=== PATIENT | female | born 1995 | race Caucasian/White ===

== ENCOUNTER → 2018-07-07 10:22 | Outpatient (CLI) | payer MEDICAID, SELFPAY ==
[2018-07-07 09:53] VITALS: BMI 32.6
[2018-07-07 11:27] LABS: Absolute Lymphocyte Count 1.66 X10^3/ul (0.83-4.51); Absolute Neutrophil Count 9.5 X10^3/uL (2.0-7.7); Basophil# 0.01 X10^3/uL; Basophil% 0.1 % (0-1); Eosinophil# 0.11 X10^3/uL; Eosinophils% 0.9 % (0-5); Hematocrit 34.6 % (37-47); Hemoglobin 11.6 g/dl (12.0-15.0); Lymphocyte # 1.66 X10^3/ul (4.0); Mean Corp Hgb Conc 33.5 g/gl (32-36); Mean Corpuscular Hgb 31.7 pg (27.0-32.0); Mean Corpuscular Volume 94.5 fL (81-99); Monocyte# 0.55 X10^3/uL; Monocyte% 4.6 % (0-10); Neutrophil # 9.52 X10^3/uL (2.7-7.7); Neutrophil % 80.2 % (47-70); Platelet Count 314 K/mm3 (150-450); RBC Distribution Width CV 13.4 % (11.6-14.6); RBC Distribution Width SD 46.5 fl (35.1-43.9); Red Blood Count 3.66 M/mm3 (4.2-5.4); White Blood Count 11.9 K/mm3 (4.4-11.0)
[2018-07-07 11:29] LABS: POSITIVE COUNT NO; POSITIVE DIFFERENTIAL NO; POSITIVE MORPHOLOGY NO
[2018-07-07 11:40] LABS: Glucose Challenge Gest 1H 50g 125 mg/dL (70-140)
== END ==
PROVIDERS: Nurse Practitioner Women's Health; Visit Provider Obstetrics & Gynecology
DX: Z34.80 Encounter for supervision of other normal pregnancy, unspecified trimester (principal)
CPT/HCPCS: 36415; 82950; 85025

== ENCOUNTER → 2018-07-24 17:21 | Outpatient (CLI) | payer MEDICAID, SELFPAY ==
[2018-07-24 13:44] VITALS: BMI 32.6
== END ==
PROVIDERS: Referring Provider Obstetrics & Gynecology; Visit Provider Obstetrics & Gynecology
DX: Z34.80 Encounter for supervision of other normal pregnancy, unspecified trimester (principal)
CPT/HCPCS: 87086; 87088

== ENCOUNTER → 2018-08-07 16:59 | Outpatient (CLI) | payer MEDICAID, SELFPAY ==
[2018-08-07 10:13] VITALS: BMI 32.6
== END ==
PROVIDERS: Referring Provider Nurse Practitioner Women's Health; Visit Provider Nurse Practitioner Women's Health
DX: Z34.80 Encounter for supervision of other normal pregnancy, unspecified trimester (principal)
CPT/HCPCS: 87086; 87088

== ENCOUNTER → 2018-09-18 17:11 | Outpatient (CLI) | payer MEDICAID, SELFPAY ==
[2018-09-18 14:10] VITALS: BMI 32.6
== END ==
PROVIDERS: Referring Provider Obstetrics & Gynecology; Visit Provider Obstetrics & Gynecology
DX: Z34.90 Encounter for supervision of normal pregnancy, unspecified, unspecified trimester (principal); Z3A.36 36 weeks gestation of pregnancy
CPT/HCPCS: 87081

== ENCOUNTER 2018-10-06 00:03 | Outpatient (CLI) | payer MEDICAID, SELFPAY ==
[2018-10-02 14:10] VITALS: BMI 34.5
[2018-10-06 00:53] VITALS: BMI 34.1
--- NOTE | 2018-10-06 07:07 | OB.TRI.PN_ITS ---
Progress Notes Date of Service: 10/06/18 Progress Note: false labor no significant cervical change fht 120 moderate variability reactive no decelerations category I tracing [place]: regular but spacing out a/p false labor reactive nst dc home labor preacutions
== END 2018-10-06 03:05 | disposition home or self-care (01) ==
LOC: WPOUT 00:31 → WP 00:32
PROVIDERS: Referring Provider Obstetrics & Gynecology; Visit Provider Obstetrics & Gynecology
DX: O47.9 False labor, unspecified (principal); Z3A.00 Weeks of gestation of pregnancy not specified
CPT/HCPCS: 59025; 59050; 99218; G0378

== ENCOUNTER 2018-10-13 19:00 | Inpatient (IN) | payer MEDICAID, SELFPAY ==
[2018-10-09 14:02] VITALS: BMI 34.1
[2018-10-13] MEDS: Lactated Ringers 1,000 ML 50 ML IV ×2 (20:42→23:43)
[2018-10-13 21:01] LABS: Absolute Lymphocyte Count 1.99 X10^3/ul (0.83-4.51); Absolute Neutrophil Count 5.8 X10^3/uL (2.0-7.7); Basophil# 0.01 X10^3/uL; Basophil% 0.1 % (0-1); Eosinophil# 0.07 X10^3/uL; Eosinophils% 0.8 % (0-5); Hematocrit 36.9 % (37-47); Hemoglobin 12.6 g/dl (12.0-15.0); Lymphocyte # 1.99 X10^3/ul (4.0); Lymphocyte % 23.3 % (19-41); Mean Corp Hgb Conc 34.1 g/gl (32-36); Mean Corpuscular Hgb 31.7 pg (27.0-32.0); Mean Corpuscular Volume 92.9 fL (81-99); Mean Platelet Vol. 11.1 fl (6.2-12.0); Monocyte# 0.63 X10^3/uL; Monocyte% 7.4 % (0-10); Neutrophil # 5.82 X10^3/uL (2.7-7.7); Neutrophil % 68.3 % (47-70); POSITIVE COUNT NO; POSITIVE DIFFERENTIAL NO; POSITIVE MORPHOLOGY NO; Platelet Count 297 K/mm3 (150-450); RBC Distribution Width CV 14.3 % (11.6-14.6); RBC Distribution Width SD 47.6 fl (35.1-43.9); Red Blood Count 3.97 M/mm3 (4.2-5.4); White Blood Count 8.5 K/mm3 (4.4-11.0)
[2018-10-13 21:11] VITALS: BMI 34.3
[2018-10-13] MEDS: Oxytocin 30 units/NS 500 ml 30 UNITS/500 ML IV.SOLN IV (21:42)
[2018-10-13] MEDS: Amnioinfusion- 0.9% NS 1,000 ML IV.SOLN. 500 ML INTRA-UTER (22:25)
--- NOTE | 2018-10-13 23:10 | PCM.HP.OB ---
- Problem List (1) Status: Acute Qualifiers: Comment: Urine culture done 04/02/18. Declined genetic screening at prior OB. normal anatomy (2) Supervision of other normal Status: Acute Comment: PRR SHAQUILLE 10/10/18 girl PC: Edwin Spouse: Raphael SULLIVAN Halsey at 26 weeks; PRR-PNL done at [facility] [place], scan to [place] History Date of Admission: 10/13/18 Final SHAQUILLE: 10/10/18 Gestational age: 40 Weeks and 3 Days History of this : This is a 23 year-old, , at 40 weeks gestational age presents for induction labor secondary to postdates. Patient has had some irregular contractions but denies any vaginal bleeding or loss of fluid admits good movement.. Allergies No Known Allergies Allergy (Verified 10/13/18 20:28) Home Medications: Home Medications vitamin,calcium,jpbzajmp-mrto-qjvmc acid tablet 1 tab PO DAILY 07/07/18 Smoking Status: Never smoker Alcohol: None Number of Fetus(es): 1 Heart Tracins moderate variability reactive no decelerations category 1 tracing [place]: Irregular contractions History Past Pregnancies: Past Pregnancies Previous term vaginal delivery uncomplicated Labs: Mom's Labs & Results 10/13/18 10/13/18 20:38 20:38 WBC 8.5 RBC 3.97 L Hgb 12.6 Hct 36.9 L MCV 92.9 MCH 31.7 MCHC 34.1 RDW 14.3 RDW Differential 47.6 H Plt Count 297 MPV 11.1 Immature Gran % (Auto) 0.100 Neut % (Auto) 68.3 Lymph % (Auto) 23.3 [place] % (Auto) 7.4 Eos % (Auto) 0.8 Baso % (Auto) 0.1 Absolute Neuts (auto) 5.8 Absolute Lymphs (auto) 1.99 Total Counted Not Reportable Blood Type O POSITIVE Antibody Screen NEGATIVE Course Did the patient receive Yes care? Labs Blood Type: O RH: POSITIVE RPR/VDRL/Syphilis Nonreactive Rubella status Immune HbSAg Negative Date Done: 04/02/18 Chlamydia Negative Gonorrhea Negative HIV/AIDS Non-Reactive Group B Strep: Negative Current Obstetrical History Gestational Diabetes No Incompetent Cervix No Infertility No IUGR No Macrosomia No Hypertension/Pre-eclampsia No Placenta Previa/Abruption No PTL/PROM No Uterine anomaly No Oligohydramnios No Polyhydramnios No Multiple gestation No Past Medical History Asthma No Diabetes No Hypertension No Heart disease No Mitral valve prolapse No Neurologic/Seizure disorder/ No Migraines Kidney disease No Liver disease No Varicosities No Clotting disorders/Hx of DVT No Thyroid Dysfunction No Other medical diseases No Psychiatric disorders No Major trauma No Abnormal PAP smear No Sleep apnea No Mammogram in the last 2 years No Social History Marital Status: Alleged father Raphael Hx Smoking No Smoking Status Never smoker Expected Delivery Method: Spontaneous Vaginal Review of Systems Constitutional: Denies: Fever, Malaise Eyes: Denies: Blurred vision, Vision Change HEENT: Denies: Head Aches, Visual Changes Cardiovascular: Denies: Chest Pain, Palpitations Respiratory: Denies: Cough, Shortness of Breath, Wheezing Gastrointestinal: Denies: Abdominal Pain, Diarrhea, Nausea, Vomiting Genitourinary: Denies: Dysuria, Hematuria Musculoskeletal: Denies: Joint Pain, Muscle pain Skin: Denies: Lesions, Rash Neurological: Denies: Blurred vision, Focal weakness, Headaches Psychiatric: Denies: Anxiety, Depression Endocrine: Denies: Heat/ Cold Intolerance Hematologic/ Lymphatic: Denies: Easy Bruising, Easy Bleeding Physical Exam General: Alert, Cooperative, No apparent distress HEENT: Atraumatic, Normocephalic. Negative for: Thyromegaly, Lymphadenopathy Cardiovascular: Regular rate Lungs: Normal air movement Abdomen: Soft, Non Tender, Gravid Neurological: Deep Tendon Reflexes 2+/4 and Symmetrical, Neuro grossly intact. Negative for: Clonus MEASUREMENT AND SENSING TECHNICIAN: Normal external genitalia. Negative for: Vulvar lesions Estimated gestational size: Appropriate for gestational size Presentation: Cephalic Assessment/Plan All Active Problems (Last Reviewed 10/09/18 @ 13:53 by Erin Glover) (Acute) Supervision of other normal (Acute) This is a 23 year-old, G 2P1, at 40 weeks gestational age presents for induction of labor secondary to postdates. Patient presents IOL, plan management for , pitocin/AROM clear fluid. Pain management: minimal intervention GBS negative. Management of any complications: none I have reviewed the [facility] and made any clinically relevant updates.
[2018-10-14] MEDS: fentaNYL-bupivacaine (epidural) 100 ML BAG EPIDURAL ×2 (00:07→04:19)
[2018-10-14] MEDS: Amnioinfusion- 0.9% NS 1,000 ML IV.SOLN. 999 ML INTRA-UTER (01:32)
[2018-10-14] MEDS: Lactated Ringers 1,000 ML 50 ML IV ×2 (01:34→06:00)
[2018-10-14] MEDS: CHLORHEXIDINE GLUC 2% CLOTH 1 EACH TOWELETTE TOPICAL (02:20)
[2018-10-14] MEDS: Oxytocin 30 units/NS 500 ml 30 UNITS/500 ML IV.SOLN 334 UNITS IV (09:48)
--- NOTE | 2018-10-14 10:01 | OP.PCM_ITS ---
Problem List (1) Status: Acute Qualifiers: Comment: Urine culture done 04/02/18. Declined genetic screening at prior OB. normal anatomy (2) Supervision of other normal Status: Acute Comment: PRR SHAQUILLE 10/10/18 girl PC: Edwin Spouse: Raphael BrockBucks at 26 weeks; PRR[facility]PNL done at [facility], scan to [place] Vaginal Delivery Maternal Presentation: Elective Induction iol postdates Method of Induction: Pitocin Amniotic Membrane Rupture Type: Artificial Amniotic Fluid Description: Clear Date of Procedure: 10/14/18 Pre-Operative Diagnosis: iol maternal request Post-Operative Diagnosis: same Surgery/ Procedure Performed: Spontaneous Vaginal Delivery Type of Anesthesia: Epidural Description of Procedure: Patient began pushing and delivered the head in the NORM presentation. The head was delivered atraumatically . The anterior and posterior shoulders delivered without complication followed by the rest of the infant and the was placed on the maternal abdomen. Delayed cord clamping was employed for approximately 60 seconds. Cord was clamped and cut and gentle traction was applied to the cord and the placenta delivered spontaneously immediately following it was noted to be intact with three-vessel cord. The perineum and vagina were inspected and noted to have no laceration. EBL was 200 cc. Patient and infant tolerated delivery well. Presentation: NORM Placental Delivery Description: Spontaneous Placenta Disposition: [facility] Cord Vessel Description: 3 Vessels Estimated Blood Loss: 200 A gender: Female Episiotomy Description: None Laceration: None Medications given after delivery: IV Pitocin Complications: None
[2018-10-14] MEDS: Oxytocin 30 units/NS 500 ml 30 UNITS/500 ML IV.SOLN 167 UNITS IV (10:20)
[2018-10-14] MEDS: Methylergonovine 0.2 MG/ML Ampul IM (11:15)
[2018-10-14] MEDS: Acetaminophen 500 MG Tablet 1000 MG PO (14:11)
--- NOTE | 2018-10-14 15:09 | NURSING ---
1400 pt oob up to br to void; pt up with one assist; bed changed and pt returned to bed
[2018-10-14 16:00] VITALS: BP 105/61; PULSE 93; RESP 16; TEMP 37.1
[2018-10-14 19:15] VITALS: BP 114/86; PULSE 103; RESP 18; TEMP 36.2; O2SAT 97
[2018-10-14] MEDS: Naproxen 250 MG Tablet 500 MG PO (22:49)
[2018-10-15] VITALS: BP 102/59; PULSE 88; RESP 18; TEMP 37.2
[2018-10-15 04:00] VITALS: BP 109/59; PULSE 79; RESP 18; TEMP 36.1
--- NOTE | 2018-10-15 07:20 | DCINST_ITS ---
Discharge Diet: No Restrictions Discharge Activity: Return to Normal Activity, May not drive while taking narcotic pain medications., May Shower May resume sexual activity in: 4-6 weeks Call your doctor if your incision/area has: Continuous Slow Oozing, Sudden Increased Bleeding, Increased Pain/ Swelling, Increased Redness, Foul Smelling Discharge Additional Instructions: If you experience any of the following, contact your healthcare provider. * Bleeding that soaks a pad every hour for 2 hours * Fever 100.4 or higher * Unrelieved incision or abdominal pain * Swelling, redness, discharge or bleeding from your incision or episiotomy site * Your incision begins to separate * Problems urinating (including inability to urinate or burning while urinating). * Visual changes * Severe headache * Flu-like symptoms * Pain or redness in one of both of your breasts * Pain, warmth, tenderness or swelling in your legs, especially the calf area * Frequent nausea and vomiting * Symptoms of depression or anxiety If you experience any of the following, call 911 or go to the nearest Emergency Room. * Chest pain * Problems breathing * Seizure activity * Partial or complete paralysis of a body part, slurred speech, weakness or drooping of the face, or a sudden inability to walk or hold your balance Allergies/Adverse Reactions: Allergies No Known Allergies Allergy (Verified 10/13/18 20:28) Medications to take at Discharge vitamin,calcium,uvxgcvou-mtyp-baqbd acid tablet 1 tab PO DAILY 07/07/18 Please Follow Up With: Ama Stearns MD - [phone] When: Call to make an appointment with your doctor in 6 weeks. If you had elevated Blood pressure or 4th degree laceration you will need to be seen in 2 weeks. Primary Care Physician: Felecia Watkins,Out of [Primary Care Provider] - Test Results: Test results from this visit will be discussed in further detail at your follow- up appointment, if applicable.
--- NOTE | 2018-10-15 07:20 | PCM.PN.OB ---
Subjective: doing well no complaints pain controlled no CP SOB N V ambulating well tolerating po lochia moderate, going well - Physical Exam Vital Signs Temp Pulse Resp BP Pulse Ox 97.0 F L 79 18 109/59 L 97 10/15/18 04:00 10/15/18 04:00 10/15/18 04:00 10/15/18 04:00 10/14/18 19:15 Oxygen Delivery Method Room Air Weight: 176 lb Body Mass Index (BMI) 34.3 Intake and Output for Last 24 Hours 10/13/18 10/14/18 10/15/18 23:59 23:59 23:59 Intake Total 4645 / 4645 Output Total 350 / 350 2300 / 2300 Balance -350 / -350 2345 / 2345 Laboratory Tests Past 24 Hrs 10/14/18 10/14/18 10:07 10:12 Specimen Type CORDART CORDVEN Sample Site Cord Blood Cord Blood Cord ABG pH 7.28 Cord ABG pCO2 49.9 Cord ABG pO2 15 Cord ABG HCO3 24 Cord ABG Total CO2 25 Cord ABG Base Excess -3 Cord ABG O2 Sat 16 Cord VBG pH 7.34 Cord VBG pCO2 36.9 L Cord VBG pO2 35 Cord VBG Base Excess -6 L O2 Delivery Device Room Air Room Air Blood Gas Notified Whom RN RN Blood Gas Notified Time 1015 1010 Medical Necessity - Tobacco Use Smoking Status: Never smoker Assessment/Plan All Active Problems (Last Reviewed 10/09/18 @ 13:53 by Erin Glover) (Acute) Supervision of other normal (Acute) s/p PPD # 1 1. routine post delivery care 2. breast feeding- support given 3. rh positive 4. rubella immune
--- NOTE | 2018-10-15 07:20 | PCM.DCVAG ---
Discharge Diet: No Restrictions Discharge Activity: Return to Normal Activity, May not drive while taking narcotic pain medications., May Shower May resume sexual activity in: 4-6 weeks Call your doctor if your incision/area has: Continuous Slow Oozing, Sudden Increased Bleeding, Increased Pain/ Swelling, Increased Redness, Foul Smelling Discharge Additional Instructions: If you experience any of the following, contact your healthcare provider. Bleeding that soaks a pad every hour for 2 hours Fever 100.4 or higher Unrelieved incision or abdominal pain Swelling, redness, discharge or bleeding from your incision or episiotomy site Your incision begins to separate Problems urinating (including inability to urinate or burning while urinating). Visual changes Severe headache Flu-like symptoms Pain or redness in one of both of your breasts Pain, warmth, tenderness or swelling in your legs, especially the calf area Frequent nausea and vomiting Symptoms of depression or anxiety If you experience any of the following, call 911 or go to the nearest Emergency Room. Chest pain Problems breathing Seizure activity Partial or complete paralysis of a body part, slurred speech, weakness or drooping of the face, or a sudden inability to walk or hold your balance Allergies/Adverse Reactions: Allergies No Known Allergies Allergy (Verified 10/13/18 20:28) Medications to take at Discharge vitamin,calcium,raeuerrr-jnic-ygaqn acid tablet 1 tab PO DAILY 07/07/18 Please Follow Up With: Ama Stearns MD - [phone] When: Call to make an appointment with your doctor in 6 weeks. If you had elevated Blood pressure or 4th degree laceration you will need to be seen in 2 weeks. Primary Care Physician: Felecia Watkins,Out of [Primary Care Provider] - Test Results: Test results from this visit will be discussed in further detail at your follow-up appointment, if applicable.
[2018-10-15 08:35] VITALS: BP 104/57; PULSE 78; RESP 18; TEMP 36.4
[2018-10-15] MEDS: Naproxen 250 MG Tablet 500 MG PO (08:38)
[2018-10-15 13:00] VITALS: BP 125/70; PULSE 72; RESP 18; TEMP 36.6
--- NOTE | 2018-10-15 14:31 | NURSING ---
dc instructions given pt verbalizes understanding; maternal and infant bracelet numbers match; infant placed in car seat per parents dc to home;
--- NOTE | 2018-10-15 16:16 | NURSING ---
1435 while parents were placing infant in car seat and trying to adjust the straps it was noticed that a valentin piece to the car seat was missing and it was not safe to take infant home in that car seat; Father of baby going to the store to buy a new car seat;
--- NOTE | 2018-10-15 16:17 | NURSING ---
1600 father of baby returned with new car seat; mother and infant wheeled out to car and placed in car seat per mother. dc to home
--- NOTE | 2018-10-19 18:51 | NURSING ---
States doing well , baby nursing well and voiding and stooling. States cord came off and she put neosporin on it and a bandaid. Mother instructed to dry cord area and leave open to air and if she shes redness or drainage or baby has temp let her baby doctor know. She also states she had a headache she thought was a migraine but had only tried tylenol . Encouraged to try her motrin and if headache not better tomorrow to call Dr Stearns and get her BP checked. She states she had a good stay and she really liked her nursed Jada.
== END 2018-10-15 16:00 | disposition home or self-care (01) | DRG 560 ==
PROVIDERS: Admitting Provider Obstetrics & Gynecology; Referring Provider Obstetrics & Gynecology; Visit Provider Obstetrics & Gynecology
DX: O48.0 Post-term pregnancy (principal); Z3A.40 40 weeks gestation of pregnancy; Z37.0 Single live birth
CPT/HCPCS: 59025; 59050; 82803; 85025; 86850; 86900; 99218; J7030; J7120; G0378

== ENCOUNTER → 2019-12-27 | Outpatient (CLI) | payer MEDICAID, SELFPAY ==
[2019-12-27 10:02] VITALS: BMI 34.3
[2019-12-27 11:24] LABS: Absolute Lymphocyte Count 1.74 X10^3/uL (0.83-4.51); Absolute Neutrophil Count 7.8 X10^3/uL (2.0-7.7); Basophil# 0.02 X10^3/uL; Basophil% 0.2 % (0-1); Eosinophil# 0.08 X10^3/uL; Eosinophils% 0.8 % (0-5); Hematocrit 36.8 % (37-47); Hemoglobin 12.4 g/dL (12.0-15.0); Lymphocyte # 1.74 X10^3/ul (4.0); Lymphocyte % 17.2 % (19-41); Mean Corp Hgb Conc 33.7 g/dL (32-36); Mean Corpuscular Hgb 32.2 pg (27.0-32.0); Mean Corpuscular Volume 95.6 fL (81-99); Mean Platelet Vol. 9.8 fl (6.2-12.0); Monocyte# 0.48 X10^3/uL; Monocyte% 4.7 % (0-10); NRBC Flagged by Analyzer 0 % (0-5); Neutrophil # 7.76 X10^3/uL (2.7-7.7); Neutrophil % 76.7 % (47-70); Platelet Count 377 K/mm3 (150-450); RBC Distribution Width CV 12.5 % (11.6-14.6); RBC Distribution Width SD 43.1 fl (35.1-43.9); Red Blood Count 3.85 M/mm3 (4.2-5.4); White Blood Count 10.1 K/mm3 (4.4-11.0)
[2019-12-27 11:38] LABS: Glucose Challenge Gest 1H 50g 114 mg/dL (70-140)
[2019-12-27 11:42] LABS: Amphetamine Urine VISTA NEGATIVE (<1000 ng/mL); Barbiturate Urine VISTA NEGATIVE (< 200 ng/mL); Benzodiazepine Urine VISTA NEGATIVE (< 200 ng/mL); Cocaine Urine VISTA NEGATIVE (< 300 ng/mL); Ecstacy Urine VISTA NEGATIVE (< 500 ng/mL); Methadone Urine VISTA NEGATIVE (< 300 ng/mL); PCP Urine VISTA NEGATIVE (< 25 ng/mL); THC Urine VISTA NEGATIVE (< 50 ng/mL); Vista UDS pH Range 7
[2019-12-27 12:12] LABS: HIV - WCH Non-Reactive (Nonreactive); Hepatitis B Surface Antigen Non-Reactive (Nonreactive); Rubella IgG 40.6 IU/mL
[2019-12-27 12:26] LABS: Hepatitis C Antibody Non-Reactive (Nonreactive)
[2019-12-29 20:07] LABS: Chlamydia By Nucleic Acid AMP Negative (Negative)
[2019-12-29 20:43] LABS: Gonococcus By Nucleic Acid AMP Negative (Negative)
[2019-12-30 05:23] LABS: Rapid Plasmin Reagin (RPR) NONREACTIVE (NONREACTIVE)
== END | disposition home or self-care (01) ==
PROVIDERS: Referring Provider Obstetrics & Gynecology; Visit Provider Obstetrics & Gynecology
DX: O99.210 Obesity complicating pregnancy, unspecified trimester (principal); E66.9 Obesity, unspecified; Z3A.00 Weeks of gestation of pregnancy not specified
CPT/HCPCS: 36415; 80307; 82950; 85025; 86592; 86703; 86762; 86803; 86850; 86900; 86901; 87086; 87088; 87340; 87491; 87591

== ENCOUNTER → 2020-01-13 | Outpatient (CLI) | payer MEDICAID, SELFPAY ==
[2020-01-13 08:47] VITALS: BMI 32.3
== END | disposition home or self-care (01) ==
LOC: LABSPEC 13:43
PROVIDERS: Referring Provider Obstetrics & Gynecology; Visit Provider Obstetrics & Gynecology
DX: N39.0 Urinary tract infection, site not specified (principal)
CPT/HCPCS: 87086; 87088

== ENCOUNTER → 2020-02-11 11:20 | Outpatient (CLI) | payer MEDICAID, SELFPAY ==
[2020-01-28 11:11] VITALS: BMI 31.7
== END ==
PROVIDERS: Referring Provider Obstetrics & Gynecology; Visit Provider Obstetrics & Gynecology
DX: Z34.82 Encounter for supervision of other normal pregnancy, second trimester (principal)
CPT/HCPCS: 36415

== ENCOUNTER → 2020-04-28 14:53 | Outpatient (CLI) | payer MEDICAID, SELFPAY ==
[2020-04-10 09:57] VITALS: BMI 33.0
[2020-04-28 17:48] LABS: Glucose Challenge Gest 1H 50g 101 mg/dL (70-140)
== END ==
PROVIDERS: Obstetrics & Gynecology; Referring Provider Obstetrics & Gynecology; Visit Provider Obstetrics & Gynecology
DX: Z34.80 Encounter for supervision of other normal pregnancy, unspecified trimester (principal)
CPT/HCPCS: 36415; 82950

== ENCOUNTER → 2020-05-12 15:01 | Outpatient (CLI) | payer MEDICAID, SELFPAY ==
[2020-05-12 14:26] VITALS: BMI 33.0
[2020-05-12 15:18] LABS: Absolute Lymphocyte Count 1.74 X10^3/uL (0.83-4.51); Absolute Neutrophil Count 8.7 X10^3/uL (2.0-7.7); Basophil# 0.03 X10^3/uL; Basophil% 0.3 % (0-1); Eosinophil# 0.14 X10^3/uL; Eosinophils% 1.3 % (0-5); Hemoglobin 11.8 g/dL (12.0-15.0); Lymphocyte # 1.74 X10^3/ul (4.0); Lymphocyte % 15.6 % (19-41); Mean Corp Hgb Conc 33.7 g/dL (32-36); Mean Corpuscular Hgb 31.8 pg (27.0-32.0); Mean Corpuscular Volume 94.3 fL (81-99); Monocyte# 0.53 X10^3/uL; Monocyte% 4.8 % (0-10); NRBC Flagged by Analyzer 0 % (0-5); Neutrophil # 8.67 X10^3/uL (2.7-7.7); Neutrophil % 77.6 % (47-70); Platelet Count 280 K/mm3 (150-450); RBC Distribution Width CV 13.2 % (11.6-14.6); RBC Distribution Width SD 45.1 fl (35.1-43.9); Red Blood Count 3.71 M/mm3 (4.2-5.4); White Blood Count 11.2 K/mm3 (4.4-11.0)
[2020-05-12 23:14] LABS: Xtra Tube EP Lab EXTRA TUBE
== END ==
PROVIDERS: Obstetrics & Gynecology; Referring Provider Obstetrics & Gynecology; Visit Provider Obstetrics & Gynecology
DX: Z34.80 Encounter for supervision of other normal pregnancy, unspecified trimester (principal)
CPT/HCPCS: 36415; 85025

== ENCOUNTER → 2020-05-26 14:56 | Outpatient (CLI) | payer MEDICAID, SELFPAY ==
[2020-05-12 14:26] VITALS: BMI 33.0
--- NOTE | 2020-05-26 14:58 | US_ITS ---
STUDY: SECOND AND THIRD TRIMESTER OBSTETRICAL ULTRASOUND - LIMITED REASON FOR EXAM: Female, 24 years old. Growth. LMP: 10/29/2019. PRIOR ULTRASOUND: None. TECHNIQUE: Transabdominal TECHNICAL QUALITY: Adequate. FINDINGS: There is a single intrauterine fetus. The fetus is in a cephalic presentation. There is demonstrated cardiac activity with a heart rate of 140 bpm. There is a normal amniotic fluid volume. The largest amniotic fluid pocket measures 6.23 cm. The amniotic fluid index (LOPEZ) is 19.48 cm. The placenta is anterior in location and is not low lying. There are Grade 0 placental changes. The cervix measures 3.36 cm in length. BIOMETRY: BPD: 7.51 cm: 30 weeks, 0 days HC: 28.04 cm: 30 weeks, 5 days AC: 26.28 cm: 30 weeks, 2 days FL: 5.19 cm: 27 weeks, 4 days Age by LMP: 30 weeks, 0 days. SHAQUILLE by LMP: 08/04/2020. age by current US: 29 weeks, 5 days. SHAQUILLE by current US: 08/06/2020. Estimated weight: 1419 grams, +/- 213 grams, 45 percentile. Gender: Indeterminant US/OB Limited With Biometrics IMPRESSION: 1. Live single intrauterine at 29 weeks, 5 days. SHAQUILLE is 08/06/2020. This roughly correlates with expected gestational age by LMP. 2. EFW of 1419 g. 3. LOPEZ of 19.48 cm. 4. Anterior grade 0 placenta. 5. VERTEX presentation. Electronically Signed: Ramesh Whitaker DO at 23:46 EST Tel [phone], Service support ,
== END ==
PROVIDERS: Referring Provider Obstetrics & Gynecology; Visit Provider Obstetrics & Gynecology
DX: O99.210 Obesity complicating pregnancy, unspecified trimester (principal); Z3A.00 Weeks of gestation of pregnancy not specified
CPT/HCPCS: 76816

== ENCOUNTER → 2020-07-14 | Outpatient (CLI) | payer MEDICAID, SELFPAY ==
[2020-07-14 15:11] VITALS: BMI 34.5
== END | disposition home or self-care (01) ==
LOC: LABSPEC 16:38
PROVIDERS: Referring Provider Obstetrics & Gynecology; Visit Provider Obstetrics & Gynecology
DX: Z34.80 Encounter for supervision of other normal pregnancy, unspecified trimester (principal)
CPT/HCPCS: 87081

== ENCOUNTER → 2020-07-21 | Outpatient (CLI) | payer MEDICAID, SELFPAY ==
[2020-07-21 15:26] VITALS: BMI 33.7
[2020-07-21 16:34] LABS: ROM Internal Control Test YES-OK TO RESULT pt. (Internal QC); ROM Patient Test Negative (Negative)
== END | disposition home or self-care (01) ==
LOC: LABSPEC 16:08
PROVIDERS: Visit Provider Obstetrics & Gynecology
DX: N89.8 Other specified noninflammatory disorders of vagina (principal)
CPT/HCPCS: 84112

== ENCOUNTER 2020-07-30 04:40 | Inpatient (IN) | payer MEDICAID, SELFPAY ==
[2020-07-28 15:06] VITALS: BMI 26.4
[2020-07-30] VITALS (49 sets, daily range): BP systolic 99–128; BP diastolic 52–72; PULSE 72–98; RESP 16; TEMP 36.3–36.6; O2SAT 96–100; BMI 34.7
[2020-07-30] MEDS: Lactated Ringers 1,000 ML 50 ML IV (05:05)
[2020-07-30] MEDS: Lactated Ringers 500 ML 999 ML IV (05:10)
[2020-07-30 05:19] LABS: Absolute Lymphocyte Count 2.35 X10^3/uL (0.83-4.51); Absolute Neutrophil Count 9.5 X10^3/uL (2.0-7.7); Basophil# 0.03 X10^3/uL; Basophil% 0.2 % (0-1); Eosinophil# 0.12 X10^3/uL; Hematocrit 36.1 % (37-47); Hemoglobin 11.6 g/dL (12.0-15.0); Lymphocyte # 2.35 X10^3/ul (0.83-4.51); Lymphocyte % 18.7 % (19-41); Mean Corp Hgb Conc 32.1 g/dL (32-36); Mean Corpuscular Hgb 31.7 pg (27.0-32.0); Mean Corpuscular Volume 98.6 fL (81-99); Mean Platelet Vol. 10.7 fl (6.2-12.0); Monocyte# 0.57 X10^3/uL; Monocyte% 4.5 % (0-10); NRBC Flagged by Analyzer 0 % (0-5); Neutrophil # 9.48 X10^3/uL (2.7-7.7); Neutrophil % 75.3 % (47-70); Platelet Count 291 K/mm3 (150-450); RBC Distribution Width CV 13.3 % (11.6-14.6); RBC Distribution Width SD 48.3 fl (35.1-43.9); Red Blood Count 3.66 M/mm3 (4.2-5.4); White Blood Count 12.6 K/mm3 (4.4-11.0)
[2020-07-30] MEDS: fentaNYL-bupivacaine (epidural) 100 ML BAG EPIDURAL (06:45)
[2020-07-30] MEDS: Oxytocin 30 units/NS 500 ml 30 UNITS/500 ML IV.SOLN IV (08:06)
[2020-07-30] MEDS: Ondansetron 4 MG/2 ML Vial IV (08:36)
--- NOTE | 2020-07-30 09:16 | PCM.HPOB.BLA ---
- Problem List (1) Active labor at term Status: Acute (2) 36 weeks gestation of Status: Acute Comment: COVID test ordered 07/12/20 (sche 07/28 at 3:30pm) (3) Depression affecting Status: Acute Comment: failed zoloft and celexa and effexor. encouraged counseling. planning psychiatry consult and wants to hold off on meds until after delivery (4) History of tetanus, diphtheria, and acellular pertussis booster vaccination (Tdap) Status: Acute Comment: 06/09/20 (5) Obesity affecting Status: Acute Qualifiers: Comment: Starting BMI 34. Early 1h gtt normal. 05/26 NL growth (6) Status: Acute Qualifiers: Comment: Carrier- neg & genetic- ordered and NTD screening discussed. genetic low risk, nl anatomy (7) Supervision of other normal Status: Acute Comment: PRR SHAQUILLE: 08/04/2020 isaak Silveira PC: Hilary Pineda Spouse: Raphael History and Physical Date of Admission: 07/30/20 Intake Vital Signs 07/28/20 Height 5 ft 9 in 07/28/20 Weight: 179 lb 07/28/20 BMI 26.4 07/28/20 BP 116/70 Intake Visit Reasons: 39WK OB Chief Complaint: est ob Aerial [employer] Required: No Is patient in pain?: No Allergies No Known Allergies Allergy (Verified 07/28/20 15:06) Medications prenat.vits,charlee,kwo-dowv-uiexy 1 tab PO DAILY 07/07/18 history Confirmed 07/28/20 ondansetron 4 mg disintegrating tablet 4 mg PO Q8H PRN #30 tablet 07/20/20 Rx Confirmed 07/28/20 Last Menstral Period: 10/29/19 Zika: Zika virus screening: Negative : No PFSH PFSH Family History Father Diabetes Grandfather Diabetes Grandmother Diabetes Social History (Updated 07/28/20 @ 17:[address] Kamini Silva MD) Smoking Status: Never smoker alcohol intake: never substance use type: does not use caffeine: Yes what type of physical activity do you participate in: none seatbelt use: always do you feel safe at home: Yes additional social history: - [employer] Pregancy History 2 Elective abortions 0 Hx Para 2 Spontaneous abortions 0 Hx # Term Pregnancies 2 Ectopic pregnancies 0 Hx # Pregnancies 0 Multiple births 0 # of living children 2 Past Pregnancies Del. Date Name GA/Weeks Outcome Route Bth Weight Infant Gen Labor Lgth Anesthesia Del Locatn Provider FOB 04/27/16 Pineda 40 live - full term 7lb 5 oz Male 10/13/18 Hilary 40 live - full term 7lb 9oz Female [facility] 39WK OB : Details: KENYA SWANSON is a 25 year old at 39 weeks admitted in active labor. OB Visit SHAQUILLE Calculator Estimated Delivery Date Method Current WG Current Estimate 08/04/20 LMP (Certain) 39w 0d Other Estimates 08/03/20 Ultrasound #1 39w 1d Expected Delivery Route/Plan Labor Preferences- CB/BF classes: no labor support person: Raphael labor intervention preferences: declines hep B, interested in tub, open to standard interventions, open to other baby meds pain management options preferred: desires natural labor, but open to epidural cut cord/dad catch: no - patient wants to help catch and cut if possible : yes PP control planned: tubal ligation discussed possible routes of delivery and associated risks: discussed possible delivery modalities and possible indications for each including R/B/A of , VAVD, FAVD, and CS. questions answered. special requests: no Specific Issue/Plans flu vaccine: declined tdap vaccine: given rhogam: na LARC form signed: declined movement and labor precautions reviewed. Problem list reviewed and updated with the most current plan of care details and appropriate orders placed. Relevant counseling for the gestational age provided. Continue routine care and follow up unless otherwise noted in visit notes/problem list details Initial Weight: Not Recorded Date EGA Weight BP Urine Prot Glucose FHR FuHt Pres Dilation Effaced St Visit Note 12/27/19 8w 3d 165 lb 6 oz 130/78 171 GP - CRL GP - CRL consistent with LMP. 01/28/20 13w 0d 162 lb 6 oz 116/78 Negative Negative 150 GP - no cramping of bleeding. Declines genetic testing. 02/25/20 17w 0d 166 lb 2 oz 110/66 Negative Negative 150 GP - no ctx, LOF, VB. Has not yet felt movement. Having gender reveal tomorrow. Anatomy scheduled. 03/16/20 19w 6d 168 lb 100/62 Negative Negative 150 SM- discussed starting celexa. no SI HI no vb cramping 04/10/20 23w 3d 169 lb 102/80 Negative Negative 140 24 SM- has noticed some improved mood but not completely. no vb lof good fm n oregular ctx increased celexa to 40mg 04/28/20 26w 0d 170 lb 8 oz 110/70 Negative Negative 155 26 GP - no LOF, VB, DFM, ctx. Having intermittent visual disturbances since increasing celexa 4 weeks ago. Also feeling more tired. Mood is better. Will allow more time to see if symptoms improve, if not will consider changing medications. GP - no LOF, VB, DFM, ctx. Having intermittent visual disturbances since increasing celexa 4 weeks ago. Also feeling more tired. Mood is better. Will allow more time to see if symptoms improve, if not will consider changing medications. CBC not drawn with labs - will have drawn next visit. 05/12/20 28w 0d 169 lb 98/72 Negative Negative 150 28 SM- discussed no change in mood symptoms on higher celexa, particularly anxiety- plan switching to zololft no vb lof good fm no regualr ctx 05/26/20 30w 0d 171 lb 8 oz 102/72 Negative Negative 130 30 GP - no LOF, VB, DFM, Ctx. Denies complaints. LARC form signed. Going on vacation in June - needs copy of her records at her next visit. 06/09/20 32w 0d 173 lb 102/74 Negative Negative 135 32 Cephalic SM- no vb lof good fm no regular ctx SM- no vb lof good fm no regular ctx discussed depression symptoms are improving but still have significant anxiety. will switch to effexor 06/30/20 35w 0d 175 lb 8 oz 110/68 Negative Negative 140 35 GP - no LOF, VB, DFM, ctx. Discussed labor preferences and routes of delivery. Desires PPBTL - papers signed. 07/14/20 37w 0d 177 lb 120/82 Negative Negative 145 37 Cephalic 1 SM- no improvement and maybe worsening of mood symptoms on effexor, no SI or HI, wants to wait until after delivery to start another medication, will get in with psychiatrist, planning also counselor 07/21/20 38w 0d 173 lb 102/78 Negative Negative 140 38 Cephalic 2 50 -3 GP - No VB, DFM, regular ctx. Possible LOF since this am. Exam negative for pooling. ROM+ sent. 07/28/20 39w 0d 179 lb 116/70 Negative Negative 120 39 Cephalic 3 60 -2 GP - no LOF, VB, DFM, regular ctx. Membranes swept today. Diagnostics Diagnostics Diagnostics Glucose 1 Hr 50 gm 101 mg/dL (70-140) 04/28/20 Hgb 11.8 g/dL (12.0-15.0) L 05/12/20 Hct 35.0 % (37-47) L 05/12/20 Details: HIV: Urine Culture: Sequential Screen: NIPT Screen: ROS Const Reports system reviewed and no additional complaints, except as docu Eyes Reports system reviewed and no additional complaints, except as docu ENT Reports system reviewed and no additional complaints, except as docu Card Reports system reviewed and no additional complaints, except as docu Resp Reports system reviewed and no additional complaints, except as docu GI Reports system reviewed and no additional complaints, except as docu Reports system reviewed and no additional complaints, except as docu, Denies abnormal vaginal bleeding, Denies painful urination, Denies pelvic pain, Denies vaginal discharge, Denies vaginal odor, Denies vaginal itching Musc Reports system reviewed and no additional complaints, except as docu Skin/Breast Reports system reviewed and no additional complaints, except as docu Neuro Yes system reviewed and no additional complaints, except as docu Psych Reports system reviewed and no additional complaints, except as docu Endo Reports system reviewed and no additional complaints, except as docu Exam Const General: cooperative, healthy appearing, comfortable, no acute distress, well developed, well groomed Nutritional Appearance: average body habitus, well nourished Orientation: alert, awake, oriented x3 HENMT Head: normal to inspection, normocephalic, atraumatic Eyes Pupils: PERRL, accommodation normal Resp Effort & Inspection: normal respiratory effort, able to speak in complete sentences, symmetric chest movement Cardio Rate: regular rate GI Palpation: soft, no guarding, no masses, nontender Skin General: no rashes or lesions noted, elasticity normal, turgor normal Neuro General: alert, awake, oriented x3 Cranial Nerves: CN's II-XI intact bilaterally, sense of smell intact, PERRL, accommodation normal, EOM intact bilaterally Speech: speech normal Gait: normal gait Psych Appearance: grossly normal, well kempt Mental Status: mental status grossly normal Mood: congruent mood Affect: normal affect Speech and Movement: speech and movement normal Attitude: cooperative Thought Process: normal Thought Content: normal Judgment: judgment good Results POC Urinalysis 2 Dip (Clinic) Office Urine Glucose Negative Last Edit by Kelly Sosa on 07/28/20 15:14 Office Urine Protein Negative Last Edit by Kelly Sosa on 07/28/20 15:14 Assessment & Plan Problems 1. 36 weeks gestation of Z3A.36 COVID test ordered 07/12/20 (sche 07/28 at 3:30pm) 2. Depression affecting O99.340; F32.9 failed zoloft and celexa and effexor. encouraged counseling. planning psychiatry consult and wants to hold off on meds until after delivery 3. Obesity affecting in third trimester O99.213 Starting BMI 34. Early 1h gtt normal. 05/26 NL growth 4. Supervision of other normal Z34.80 PRR SHAQUILLE: 08/04/2020 boy Raoul PC: Hilary Pineda Spouse: Raphael 5. 39 weeks gestation of Z3A.39 Carrier- neg & genetic- ordered and NTD screening discussed. genetic low risk, nl anatomy 6. History of tetanus, diphtheria, and acellular pertussis booster vaccination (Tdap) Z92.29 06/09/20 Patient presents IAL, plan expectant management for , pitocin/AROM PRN if needed. Pain management: Plans epidural. GBS negative. Management of any complications: None I have reviewed the [facility] and made any clinically relevant updates. UPDATE- I have seen the patient and performed any clinically relevant updates to the history and physical exam. Kamini Silva MD
[2020-07-30] MEDS: Oxytocin 30 units/NS 500 ml 30 UNITS/500 ML IV.SOLN 334 UNITS IV (11:16)
--- NOTE | 2020-07-30 11:25 | PCM.OPRPT ---
Problem List (1) Active labor at term Status: Acute (2) 36 weeks gestation of Status: Acute Comment: COVID test ordered 07/12/20 (sche 07/28 at 3:30pm) (3) Depression affecting Status: Acute Comment: failed zoloft and celexa and effexor. encouraged counseling. planning psychiatry consult and wants to hold off on meds until after delivery (4) History of tetanus, diphtheria, and acellular pertussis booster vaccination (Tdap) Status: Acute Comment: 06/09/20 (5) Obesity affecting Status: Acute Qualifiers: Comment: Starting BMI 34. Early 1h gtt normal. 05/26 NL growth (6) Status: Acute Qualifiers: Comment: Carrier- neg & genetic- ordered and NTD screening discussed. genetic low risk, nl anatomy (7) Supervision of other normal Status: Acute Comment: PRR SHAQUILLE: 08/04/2020 isaak Silveira PC: Hilary Pineda Spouse: Kage Vaginal Delivery Maternal Presentation: Active Labor 25-year-old G3, P2 at 39 weeks gestation admitted in active labor. Patient made cervical change to complete dilation after being augmented with Pitocin. Amniotic Membrane Rupture Type: Spontaneous Amniotic Fluid Description: Clear Final SHAQUILLE: 08/04/20 Gestational age: 39 Weeks and 2 Days Date of Procedure: 07/30/20 Pre-Operative Diagnosis: Term , active labor Post-Operative Diagnosis: Same Surgery/ Procedure Performed: Spontaneous Vaginal Delivery Type of Anesthesia: Epidural Description of Procedure: Patient began pushing and delivered the head in the NORM presentation. The head was delivered atraumatically and no nuchal cord was noted. The anterior and posterior shoulders delivered without complication followed by the rest of the and the infant was placed on the maternal abdomen. Delayed cord clamping was employed for approximately 60 seconds. Cord was clamped and cut and gentle traction was applied to the cord and the placenta delivered spontaneously immediately following it was noted to be intact with three-vessel cord. The perineum and vagina were inspected and no laceration was noted. EBL was 100 cc. Patient and infant tolerated delivery well. Presentation: Vertex, NORM Placental Delivery Description: Spontaneous Placenta Disposition: [facility] Cord Vessel Description: 3 Vessels Cord Entanglement: None Drain: Allen to straight drain Estimated Blood Loss: 100 Infant A gender: Male Episiotomy Description: None Laceration: None Medications given after delivery: IV Pitocin Complications: None Multi Select Codes - Urinary/Genital Urinary/Genital CPT Codes: 15500 Vaginal Delivery+ Care([facility])
--- NOTE | 2020-07-30 11:28 | DCINST_ITS ---
Discharge Diet: No Restrictions Discharge Activity: Return to Normal Activity, May not drive while taking narcotic pain medications., May Shower May resume sexual activity in: 4-6 weeks Additional Activity Instructions:: Nothing in the vagina for 4-6 weeks. You may return to work/school in 6 weeks. Call your doctor if your incision/area has: Continuous Slow Oozing, Sudden Increased Bleeding, Increased Pain/ Swelling, Increased Redness, Foul Smelling Discharge Additional Instructions: If you experience any of the following, contact your healthcare provider. * Bleeding that soaks a pad every hour for 2 hours * Fever 100.4 or higher * Unrelieved incision or abdominal pain * Swelling, redness, discharge or bleeding from your incision or episiotomy site * Your incision begins to separate * Problems urinating (including inability to urinate or burning while urinating). * Visual changes * Severe headache * Flu-like symptoms * Pain or redness in one of both of your breasts * Pain, warmth, tenderness or swelling in your legs, especially the calf area * Frequent nausea and vomiting * Symptoms of depression or anxiety If you experience any of the following, call 911 or go to the nearest Emergency Room. * Chest pain * Problems breathing * Seizure activity * Partial or complete paralysis of a body part, slurred speech, weakness or drooping of the face, or a sudden inability to walk or hold your balance Allergies/Adverse Reactions: Allergies No Known Allergies Allergy (Verified 07/30/20 03:05) Medications to take at Discharge prenat.vits,charlee,jkh-anoq-dylka 1 tab PO DAILY 07/07/18 ondansetron 4 mg disintegrating tablet 4 mg PO Q8H PRN #30 tablet 07/20/20 Venlafaxine HCl [Venlafaxine HCl ER] 75 mg PO DAILY 07/30/20 When: Call to make an appointment with your doctor in 6 weeks. If you had elevated Blood Pressure or 4th degree laceration you will need to be seen in 2 weeks. Primary Care Physician: Sachin Kwon MD [Primary Care Provider] - Test Results: Test results from this visit will be discussed in further detail at your follow- up appointment, if applicable.
--- NOTE | 2020-07-30 16:41 | NURSING ---
MOB and FOB both currently CPR certified. Declined use of IPAD for review at this time. Both expressed they knew steps to perform if necessary. This RN completed CPR teaching intervention.
[2020-07-30] MEDS: Venlafaxine XR 75 MG Capsule PO (21:34)
[2020-07-30] MEDS: Naproxen 250 MG Tablet 500 MG PO (22:01)
[2020-07-31 00:11] VITALS: BP 106/53; PULSE 68; RESP 16; TEMP 36.9
[2020-07-31 04:25] VITALS: BP 117/61; PULSE 68; RESP 16; TEMP 36.6
--- NOTE | 2020-07-31 08:19 | PCM.PN.OB ---
Patient Problems: Active and Suspected Problems (Last Reviewed 07/28/20 @ 15:06 by Kelly Sosa) Active labor at term (Acute) 36 weeks gestation of (Acute) COVID test ordered 07/12/20 (sche 07/28 at 3:30pm) History of tetanus, diphtheria, and acellular pertussis booster vaccination (Tdap) (Acute) 06/09/20 Depression affecting (Acute) failed zoloft and celexa and effexor. encouraged counseling. planning psychiatry consult and wants to hold off on meds until after delivery Obesity affecting (Acute) Starting BMI 34. Early 1h gtt normal. 05/26 NL growth Supervision of other normal (Acute) PRR SHAQUILLE: 08/04/2020 boy Raoul PC: PinedaDora phillipsna Spouse: Raphael (Acute) Carrier- neg & genetic- ordered and NTD screening discussed. genetic low risk, nl anatomy Subjective: Patient doing well without complaints. Tolerating PO. Ambulating and voiding without difficulty. Breast feeding well. Denies chest pain, shortness of breath, calf pain/swelling, fevers, chills, lightheadedness. - Physical Exam Vitals/I&O's: Vital Signs Temp Pulse Resp BP Pulse Ox 97.9 F 68 16 117/61 97 07/31/20 04:25 07/31/20 04:25 07/31/20 04:25 07/31/20 04:25 07/30/20 07:14 Oxygen Delivery Method Room Air Weight: 177 lb 9.6 oz Body Mass Index (BMI) 34.7 Intake and Output for Last 24 Hours 07/29/20 07/30/20 07/31/20 23:59 23:59 23:59 Intake Total 1877.79 / 1877.79 Output Total 1800 / 1800 Balance 77.79 / 77.79 General: Alert, Oriented x3, Cooperative, No apparent distress, Well developed, Well nourished HEENT: Atraumatic, PERRLA, EOMI, Normocephalic Neck: Supple, No JVD Lungs: Normal air movement Cardiovascular: Regular rate Abdomen: Soft, Non Tender, Non-Distended, - - fundus firm Extremities: No edema, No Calf Tenderness Neurological: Cranial nerves II-XII grossly intact, Neuro grossly intact Psych/Mental Status: Normal Affect, Appropriate Microbiology Past 72 Hours 07/30/20 05:05 Mucosa - Nose SARS-CoV-2 Antigen (Rapid) - Final Current Medications Acetaminophen (Acetaminophen 500 Mg Tablet) 1,000 mg PO Q8H PRN PRN PRN Reason: Pain Score 1-3 Bisacodyl (Bisacodyl 10 Mg Suppository) 10 mg RC UD PRN PRN Reason: If no BM Dibucaine (Dibucaine 30 Gm Tube) 1 applic TOPICAL TID PRN PRN; Protocol PRN Reason: Discomfort Hydrocortisone (Hydrocortisone 2.5% Crm) 1 applic TOPICAL TID PRN PRN; Protocol PRN Reason: Discomfort Methylergonovine Maleate (Methylergonovine 0.2 Mg/Ml Ampul) 0.2 mg IM X1 PRN PRN Reason: Excess bleeding/uterine atony Naproxen (Naproxen 250 Mg Tablet) 500 mg PO Q8H PRN PRN PRN Reason: Pain Score 1-3 Last Admin: 07/30/20 22:01 Dose: 500 mg Documented by: Ondansetron HCl (Ondansetron 4 Mg/2 Ml Vial) 4 mg IV Q4H PRN PRN PRN Reason: Nausea Senna/Docusate Sodium (Senna/Docusate Sodium 1 Tablet) 1 - 2 tablet PO DAILY PRN PRN PRN Reason: Constipation Simethicone (Simethicone 80 Mg Tablet) 80 mg PO PCHS PRN PRN Reason: Indigestion/Stomach pain Sodium Chloride (0.9% Saline Lock 10 Ml Syringe) 5 - 15 ml IV UD PRN PRN Reason: SALINE FLUSH Venlafaxine HCl (Venlafaxine Xr 75 Mg Capsule) 75 mg PO DAILY@2200 OTILIO Last Admin: 07/30/20 21:34 Dose: 75 mg Documented by: Medical Necessity - Tobacco Use Smoking Status: Never smoker Assessment/Plan All Active Problems (Last Reviewed 07/28/20 @ 15:06 by Kelly Sosa) Active labor at term (Acute) 36 weeks gestation of (Acute) History of tetanus, diphtheria, and acellular pertussis booster vaccination (Tdap) (Acute) Depression affecting (Acute) Obesity affecting (Acute) Supervision of other normal (Acute) (Acute) (Resolved) Supervision of other normal (Resolved) Thyromegaly (Resolved) s/p PPD # 1 1. routine post delivery care 2. breast feeding- support given 3. rh positive 4. rubella immune 5. Plan PPBTL for control
[2020-07-31 08:21] VITALS: BP 119/75; PULSE 67; RESP 16; TEMP 36.1
--- NOTE | 2020-07-31 11:14 | NURSING ---
Dr. Silva's office called and unable to do tubal today. Pt requesting to be discharged today
[2020-07-31 12:00] VITALS: BP 108/57; PULSE 80; RESP 16; TEMP 36.1
--- NOTE | 2020-07-31 12:50 | CASEMGMT ---
Social Work Assessment Labor and Delivery Unit Date of Referral: 07/30/20 Time of Referral: 15:36 Referred By: Dr. Silva Date of Intervention: 07/31/20 Time of Intervention: 12:50 Reason for Referral: History of anxiety and depression, post- depression- currently prescribed Effexor History obtained from: Medical record and mother of baby (MOB) Household composition: MOB, /father of baby(FOB), 4 year-old son, Edwin, 1 year-old daughter, Kristine and now baby boy, Matheus Patient's parent/guardian status: MOB and FOB have been together for 8 years, for 5 years Educational Status: High school graduate, MOB denies any issues with reading, writing, and comprehending what is read. Financial Status: 1 income household Infant Supplies: MOB reports to have all needs met for baby including, diapers, wipes, clothes, car seat, bottles, crib, etc. Childcare/Caregiver(s): MOB reports she and FOB will be main caregivers, MOB is a stay at home mother Transportation: No issues reported Programs/Agencies Involved: [facility] Children Services/Legal Issues: MOB reports no issues with children services as a child or for her children. MOB and FOB deny any legal issues. Behavioral Health Issues: Mental Health History: MOB reports history of anxiety, depression and post- depression. MOB reports believes PPD started with first child and carried over into her second . MOB believes mental health stems from childhood traumas. MOB reports is treated with medication. MOB reports to be feeling good. MOB denies any suicidal or homicidal ideation. FOB denies any history of mental health for self. Substance Use History: MOB denies and history of substance abuse. FOB reports use as a teenager, experimenting. Family History: MOB reports her mother is an addict and grandfather was a violent alcoholic. MOB reports has been setting boundaries with her mother. Family/Social Stressors: MOB reports plan for tubal and it can't be done today. MOB reports wanting to discharge today if unable to have procedure done. MOB states due to insurance issues and hoping it will be covered before she is cut from Medicaid. MOB states will be following up with [facility]. Support Systems: MOB reports good support from FOB's family and her extended family. Depression and Anxiety/Shaken Baby/Safe Sleeping: Reviewed and resources provided. ASSESSMENT: Met with MOB in room. Baby out of room at this time for testing. Introduced role and reason for referral. MOB openly discussed history of mental health and treatment with medication. MOB reports to have good support from FOB. MOB denies any issues or concerns with home going and reports due to not having tubal procedure done, hopeful for discharge today. Nursing updated on this worker's assessment. No other services requested or indicated. PLAN: Home with resources provided Prabha Sinha MSW, [employer]
--- NOTE | 2020-07-31 16:42 | NURSING ---
1200- epidural catheter removed with blue tip intact. tolerated well
== END 2020-07-31 14:45 | disposition home or self-care (01) | DRG 560 ==
LOC: WPOUT 04:44 → WP 04:44
PROVIDERS: Admitting Provider Obstetrics & Gynecology; Visit Provider Obstetrics & Gynecology
DX: O99.214 Obesity complicating childbirth (principal); Z3A.39 39 weeks gestation of pregnancy; Z37.0 Single live birth
CPT/HCPCS: 59025; 59050; 85025; 86850; 86900; 86901; 87426; 99218; J7120; G0378; J2405

== ENCOUNTER → 2020-09-13 | Outpatient (CLI) | payer MEDICAID, SELFPAY ==
[2020-09-13 13:58] VITALS: BMI 34.7
[2020-09-18 13:54] LABS: HPV Reflexed? NOT INDICATED
== END | disposition home or self-care (01) ==
LOC: LABSPEC 15:52
PROVIDERS: Visit Provider Obstetrics & Gynecology
DX: Z12.4 Encounter for screening for malignant neoplasm of cervix (principal)
CPT/HCPCS: 88175; G0145

== ENCOUNTER 2020-09-26 06:00 | Day surgery (SDC) | payer MEDICAID, SELFPAY ==
[2020-07-30 03:04] VITALS: BMI 34.7
[2020-09-13 13:58] VITALS: BMI 34.7
[2020-09-25 14:45] LABS: Hematocrit 37.4 % (37-47); Hemoglobin 12.6 g/dL (12.0-15.0); Mean Corp Hgb Conc 33.7 g/dL (32-36); Mean Corpuscular Hgb 31.4 pg (27.0-32.0); Mean Corpuscular Volume 93.3 fL (81-99); Mean Platelet Vol. 10.3 fl (6.2-12.0); Platelet Count 381 K/mm3 (150-450); RBC Distribution Width CV 13.2 % (11.6-14.6); RBC Distribution Width SD 44.7 fl (35.1-43.9); Red Blood Count 4.01 M/mm3 (4.2-5.4); White Blood Count 7.6 K/mm3 (4.4-11.0)
[2020-09-26 06:49] LABS: Internal QC Validated? YES +Cl - CLEAR BKGD; Pregnancy, Urine Negative Negative
[2020-09-26 06:57] VITALS: BP 122/79; PULSE 63; RESP 16; TEMP 36.4; O2SAT 98; BMI 32.1
[2020-09-26] MEDS: Lactated Ringers 1,000 ML 100 ML IV (07:13)
--- NOTE | 2020-09-26 07:13 | PCM.HP.OB ---
HPI - General HPI Narrative KENYA SWANSON, is a 25 F who presents for tubal ligation. [facility] Medical History (Updated 09/20/20 @ 08:47 by Ting Capellan) Alcohol use Anemia Anxiety Depression Marijuana use Migraine headache Non-smoker Wears glasses Home Medications prenat.vits,charlee,mlt-[id number] 1 tab PO DAILY 07/07/18 [History Last Taken 07/29/20] venlafaxine 75 mg PO DAILY 07/30/20 [History Last Taken 07/29/20] Allergy/AdvReac Type Severity Reaction Status Date / Time No Known Allergies Allergy Verified 09/26/20 06:52 Family History Father Diabetes Grandfather Diabetes Grandmother Diabetes Social History Smoking Status: Never smoker alcohol intake: never substance use type: does not use caffeine: Yes what type of physical activity do you participate in: none seatbelt use: always do you feel safe at home: Yes additional social history: - [employer] History 3 Elective abortions 0 Hx Para 3 Spontaneous abortions 0 Hx # Term Pregnancies 3 Ectopic pregnancies 0 Hx # Pregnancies 0 Multiple births 0 # of living children 3 Past Pregnancies Del. Date Name GA/Weeks Outcome Route Bth Weight Gen Labor Lgth Anesthesia Del Locatn Provider FOB 04/27/16 Pineda 40 live - full term 7lb 5 oz Male 10/13/18 Hilary 40 live - full term 7lb 9oz Female [facility] Daryn 07/30/20 Matheus 39 live - full term 7lbs 7oz Male [facility] Ricardo Delivery Date: 04/27/16 No notes to display Delivery Date: 10/13/18 No notes to display Delivery Date: 07/30/20 admitted in active labor, uncomplicated vaginal delivery Marley Baez ROS Eyes Eyes: Reports systems reviewed and no addt'l complaints, except as documented ENT HEENT: Reports systems reviewed and no addt'l complaints, except as documented Cardiovascular Cardiovascular: Reports systems reviewed and no addt'l complaints, except as documented Respiratory/Chest Respiratory/Chest: Reports systems reviewed and no addt'l complaints, except as documented Gastrointestinal Gastrointestinal: Reports systems reviewed and no addt'l complaints, except as documented Genitourinary Genitourinary: Reports systems reviewed and no addt'l complaints, except as documented Musculoskeletal Musculoskeletal: Reports systems reviewed and no addt'l complaints, except as documented Integumentary Integumentary: Reports systems reviewed and no addt'l complaints, except as documented Neurologic Neurologic: Reports systems reviewed and no addt'l complaints, except as documented Psychiatric Psychiatric: Reports systems reviewed and no addt'l complaints, except as documented Endocrine Endocrinology: Reports systems reviewed and no addt'l complaints, except as documented Hematologic/Lymphatic Hematologic/Lymphatic: Reports systems reviewed and no addt'l complaints, except as documented Allergic/Immunologic Allergic/Immunologic: Reports systems reviewed and no addt'l complaints, except as documented Vital Signs Vital Signs Vital Signs: 09/26/20 06:57 Temperature 97.6 F L Temperature Source Temporal Pulse Rate 63 Respiratory Rate 16 Respiratory Pattern Normal Blood Pressure 122/79 H Blood Pressure Mean 93 Blood Pressure Source Monitor Blood Pressure Position Semi-Fowlers Blood Pressure Location Left Arm Pulse Ox 98 Oxygen Delivery Method Room Air Weight Weight: 164 lb 10.965 oz Body Mass Index (BMI) 32.1 Physical Exam Const alert, oriented x3, no apparent distress, average body habitus, healthy appearing and well nourished HEENT normocephalic and moist oral mucous membranes Head and Scalp: atraumatic Eyes PERRL and EOMs intact bilaterally Neck full ROM Resp normal respiratory effort, no retractions and no use of accessory muscles Cardio regular rate and regular rhythm GI soft to palpation, non-tender and non-distended Extremity normal to inspection and full ROM Skin no rashes or lesions noted Neuro no focal motor deficits and no sensory deficits noted Psych mental status grossly normal, affect normal, speech normal and activity/motor behavior normal Labs Labs Labs: Blood Type O POSITIVE Antibody Screen NEGATIVE Hct 37.4 % (37-47) Hgb 12.6 g/dL (12.0-15.0) Pap Smear Negative Obstetrics US Rubella IgG Antibody 40.6 IU/mL Hep Bs Antigen Non-Reactive (Nonreactive) Neisseria gonorrhoeae DNA ([place]) Negative (Negative) HIV 1&2 Antibody Non-Reactive (Nonreactive) Glucose 1 Hr 50 gm 101 mg/dL (70-140) Rhogam given: No Miscellaneous Test Assessment & Plan (1) Tubal ligation evaluation: PLAN: Plan for tubal ligation. Reports is certain that she does not want to get again in the future The nature of the procedure was discussed with the patient. Risks, benefits, indications, and alternatives to the procedure were discussed with the patient including bleeding, infection, and visceral or vascular injury. Agreeable to blood products if medically necessary. Discussed possibility of infection inside abdomen or at incision sites which could require outpatient or inpatient antibiotics. Discussed the possibility of injury to uterus, tubes, ovaries, bowel, and bladder. Aware that this could require intra-op consult to general surgery or urology. Also aware of the possibility of prolonged hospitalization or reoperation. Discussed possibility of need to convert to open to procedure. All questions were answered. Patient voices understanding and agrees to proceed. Plan laparoscopic bilateral salpingectomy
--- NOTE | 2020-09-26 07:21 | PCM.DC ---
Discharge Instructions Diet Discharge Diet: No restrictions Activity Discharge Activity: May Not Drive (While on narcotic pain medication) and May Shower May resume sexual activity in: 1-2 weeks Lifting Restrictions: No lifting greater than 20 pounds until postop visit Dressing / Incision Call your doctor if your incision/area has: Continuous Slow Oozing, Sudden Increased Bleeding, Increased Pain/ Swelling, Increased Redness, Foul Smelling Discharge and Swelling at the incision site Call your doctor if you observe: Fever of 101 or Higher, Inability to urinate, Using more than 1 pad per hour, Shortness of breath, Dizziness, Fainting spells, Chest pain and Uncontrolled pain Remove Dressing in: 1 week Cleanse incision/area with: Soap & Water Follow Up Care Please Follow Up With: Kamini Silva MD When: 2 weeks Test Results: Test results from this visit will be discussed in further detail at your follow-up appointment, if applicable. Discharge Plan Admission Primary Reason for Your Visit: Tubal ligation Attending Provider: Kamini Silva Primary Care Provider: Sachin Kwon Instructions Patient Instructions: After Laparoscopic Fallopian Tube Ligation Discharge Orders/Prescriptions Prescriptions: New ibuprofen [ibuprofen] 600 MG tablet 600 mg PO Q6H PRN PRN (Reason: pain) Qty: 30 RF: 1 oxycodone 5 mg capsule 5 mg PO Q6H PRN (Reason: pain) 5 Days Qty: 8 RF: 0 Continued prenat.vits,charlee,fsk-xiqt-xhyaf tablet 1 tab PO DAILY RF: 0 venlafaxine 75 MG tablet extended release 24hr 75 mg PO DAILY RF: 0 Referrals / Follow Up: Sachin Kwon MD [Primary Care Provider] - Disposition Disposition (needs filled in before D/C Order can be placed): Home, Self Care
--- NOTE | 2020-09-26 07:24 | PCM.OPRPT ---
Problems Associated Problem List Diagnoses (1) Encounter for tubal ligation: Report of Operation Date of Procedure: 09/26/20 Pre-Operative Diagnosis: Desire for permanent stimulation Post-Operative Diagnosis: Same Surgery/Procedure Performed:: Laparoscopic bilateral salpingectomy Description of Surgical Findings:: Normal uterus, tubes, ovaries bilaterally residential property consultant: Ketty Rush Type of Anesthesia: General Special Medications: 0.25% Marcaine Specimen's removed: Bilateral tubal segments Drains: Straight cath Estimated Blood Loss (mL): 10 Description of Procedure: The patient was taken to the operating room where general anesthesia was obtained without difficulty. She was prepped and draped in the dorsal lithotomy position with yellofin stirrups. A weighted speculum was placed in the posterior aspect of the vagina and the anterior lip of the cervix was grasped with a single-tooth tenaculum. The uterus was sounded and found to be 8 cm. A Zumi uterine manipulator was placed without difficulty and all other instruments were removed from the vagina. Gloves were changed and attention was directed to the abdomen. The umbilicus was grasped with towel clamps. 10cc of 0.25% marcaine was used to anesthetize the umbilicus. A 5mm incision was made at the base of the umbilicus. A veress needle was inserted without difficulty and intra-abdominal placement was confirmed using the water-drop test. The abdomen was insufflated to 15 mmHg and the veress needle was removed. A 5mm optiview trochar was then placed under direct visualization. Initial survey of the abdominal cavity revealed no evidence of trauma. The above findings were noted. An additional 5mm port was placed in the left lower quadrant. The ligasure device was used to grasp, cauterize, and transect the mesosalpinx bilaterally and the tubes were amputated and removed from the 5mm port. The area was reinspected and good hemostasis was noted. The procedure was deemed complete. All instruments were removed from the abdominal cavity. The port sites were closed in a simple interrupted fashion using 3-0 monocryl and sterile dressings were placed. The uterine manipulator was removed. The patient was awakened from anesthesia and taken to the recovery room in stable condition. Complications None apparent Admit VTE Documentation VTE Present on Admission: No VTE Mechan Device Prophylaxis: SCD's VTE Pharm Prophylaxis ordered?: No Procedures Urinary/Genital [id number]: [id number] Laproscopic BS/O (BS)
--- NOTE | 2020-09-26 07:30 | FALS_PTH ---
PATIENT: KENYA SWANSON [place] [facility] [place][id number] AGE/SX: 25/F ROOM: RE09/26/[address]: Dr. Kamini Silva MD : 1995 BED: DIS: 09/26/2020 SPEC #: [id number] RECD: 09/26/20 11:02 STATUS: ZAK ROSARIO #: [id number] MADHAVI: 09/26/20 07:[address]: Kamini Silva DEPT: SURGICAL PATHOLOGY RECD BY: Shea De Paz ENTERED: 09/26/20 11:36 SP TYPE: FALL TUBES OTHR DR: Dr. Sachin Kwon MD Tissues: Fallopian tube Procedures: Surgery Specimen Level II HEADER OPERATION: Laparoscopic salpingectomy with Ligasure PRE-OP DIAGNOSIS: Tubal ligation TISSUE SUBMITTED: Bilateral fallopian tubes MICROSCOPIC DIAGNOSIS Right and left fallopian tubes, bilateral salpingectomies: Two complete segments of fallopian tubes with no pathologic change. AM:ishaan 09/27/2020 MICROSCOPIC DESCRIPTION Slides are reviewed. GROSS DESCRIPTION Received in fixative is one container labeled with the patient's name and designated bilateral fallopian tubes. The specimen consists of bilateral fallopian tubes including fimbrial ends measuring 6.5 cm in length and up to 0.5 cm in diameter and 5 cm in length and 0.5 cm in diameter. The fallopian tubes are not identified as right or left. Sections reveal unremarkable cut surfaces. Catalogue Illustrator sections are submitted in two cassettes with each cassette containing one fallopian tube. / RON:ishaan 09/26/20 TC:4 CPT: 92562 x2
[2020-09-26] MEDS: Bupivacaine Mpf 0.5% 30 ML VIAL (07:49)
[2020-09-26 08:20] VITALS: BP 122/79; BP 135/94; PULSE 97; RESP 16; TEMP 36; O2SAT 96
[2020-09-26 08:30] VITALS: BP 122/79; BP 129/95; PULSE 75; RESP 16; O2SAT 98
[2020-09-26 08:45] VITALS: BP 122/79; BP 132/89; PULSE 57; RESP 16; O2SAT 98
[2020-09-26 09:00] VITALS: BP 122/79; BP 132/87; PULSE 63; RESP 16; TEMP 35.9; O2SAT 98
[2020-09-26 09:59] VITALS: BP 116/78; BP 122/79; PULSE 65; RESP 16; TEMP 36.1; O2SAT 99
== END 2020-09-26 09:59 | disposition home or self-care (01) ==
LOC: SDC 06:01 → AC 06:01
PROVIDERS: Anesthesiology; Referring Provider Obstetrics & Gynecology; Visit Provider Obstetrics & Gynecology
PROC: (CPT 58661; principal; 2020-09-26 07:15)
DX: Z30.2 Encounter for sterilization (principal); D64.9 Anemia, unspecified; F32.9 Major depressive disorder, single episode, unspecified; F41.9 Anxiety disorder, unspecified; F12.90 Cannabis use, unspecified, uncomplicated
CPT/HCPCS: 58661; 36415; 81025; 85027; 86850; 86900; 86901; 87426; 88302; C9803; J7120; J2405

== ENCOUNTER → 2022-06-17 | Outpatient (CLI) | payer MEDICAID, SELFPAY ==
[2022-06-17 13:48] LABS: Vitamin D,25 Hydroxy 21.2 ng/mL
[2022-06-17 13:52] LABS: T4 Free Direct 0.77 ng/dL (0.76-1.46); Thyroid Stim Hormone (TSH) 0.95 uIU/mL (0.358-3.74)
== END | disposition home or self-care (01) ==
LOC: PAVLAB 12:41
PROVIDERS: Referring Provider Registered Nurse; Visit Provider Registered Nurse
DX: F32.9 Major depressive disorder, single episode, unspecified (principal); F41.9 Anxiety disorder, unspecified
CPT/HCPCS: 36415; 82306; 84439; 84443

== ENCOUNTER → 2023-12-10 | Outpatient (CLI) | payer MEDICAID, SELFPAY ==
[2023-12-13 07:08] LABS: Chlamydia By Nucleic Acid AMP Negative (Negative); Gonococcus By Nucleic Acid AMP Negative (Negative)
[2023-12-15 12:20] LABS: HPV Reflexed? NOT INDICATED
== END | disposition home or self-care (01) ==
PROVIDERS: Referring Provider Nurse Practitioner Women's Health; Visit Provider Nurse Practitioner Women's Health
DX: Z12.4 Encounter for screening for malignant neoplasm of cervix (principal); N89.8 Other specified noninflammatory disorders of vagina
CPT/HCPCS: 87070; 87205; 87491; 87591; 88175; G0145

== ENCOUNTER → 2025-02-01 | Outpatient (CLI) | payer MEDICAID, SELFPAY ==
[2025-02-01 10:34] LABS: Hematocrit 39.0 % (37-47); Hemoglobin 13.1 g/dL (12.0-15.0); Immature Granulocytes Count 0.020 X10^3/uL (0.0-0.0); Mean Corp Hgb Conc 33.6 g/dL (32-36); Mean Corpuscular Volume 94.2 fL (81-99); Mean Platelet Vol. 10.1 fl (6.2-12.0); NRBC Flagged by Analyzer 0 % (0-5); Platelet Count 337 K/mm3 (150-450); RBC Distribution Width CV 12.4 % (11.6-14.6); RBC Distribution Width SD 43.4 fl (35.1-43.9); Red Blood Count 4.14 M/mm3 (4.2-5.4); White Blood Count 7.5 K/mm3 (4.4-11.0)
[2025-02-01 11:15] LABS: Vitamin D,25 Hydroxy 21.6 ng/mL (30-100)
== END | disposition home or self-care (01) ==
LOC: BWCLAB 09:55
PROVIDERS: Visit Provider Nurse Practitioner Women's Health
DX: Z13.29 Encounter for screening for other suspected endocrine disorder (principal); R53.83 Other fatigue
CPT/HCPCS: 36415; 82306; 84439; 84443; 85025; 86376